=== PATIENT | female | born 1965 | race Caucasian/White ===

== ENCOUNTER 2018-08-03 14:20 | Inpatient (IN) | payer OTHER ==
[~2018-08-03] VITALS: Ht 172.7 cm; Wt 63.5 kg
[2018-08-03 20:00] VITALS: BP 119/81
[2018-08-03] MEDS ORDERED: MAGNESIUM HYDROXIDE 30 ML LIQUID UDC PO PRN (20:00)
[2018-08-03] MEDS ORDERED: ONDANSETRON 4 MG/2 ML VIAL IM PRN (20:00)
[2018-08-03] MEDS ORDERED: LOPERAMIDE HCL 2 MG CAPSULE PO PRN ×2 (20:00)
[2018-08-03] MEDS ORDERED: MAG HYDROX/AL HYDROX/SIMETH 30 ML LIQUID UDC PO PRN (20:00)
[2018-08-03] MEDS ORDERED: MIRALAX 17 GM POWD.PACK PO PRN (20:00)
[2018-08-03] MEDS ORDERED: CLONIDINE HCL 0.1 MG TABLET PO PRN (20:00)
[2018-08-03] MEDS ORDERED: LORAZEPAM 0.5 MG TABLET PO PRN ×2 (20:00)
[2018-08-03] MEDS ORDERED: IBUPROFEN 600 MG TABLET PO PRN (20:00)
[2018-08-03] MEDS ORDERED: SRC ALCOHOL WITHDRAWAL ADMITTING PROTOCOL XX PRN (20:00)
[2018-08-03] MEDS ORDERED: ACETAMINOPHEN 325 MG TABLET PO PRN (20:00)
[2018-08-03] MEDS ORDERED: ONDANSETRON ODT 4 MG TAB.RAPDIS SL PRN (20:00)
[2018-08-03] MEDS ORDERED: LORAZEPAM 2 MG/1 ML VIAL IM PRN (20:00)
[2018-08-03] MEDS ORDERED: THIAMINE HCL 200 MG/2 ML VIAL IM ONE (20:00)
[2018-08-03 20:18] LABS: *AMPHETAMINE, URINE POSITIVE (NEGATIVE); *BARBITURATE, URINE NEGATIVE (NEGATIVE); *CANNABINOID, URINE NEGATIVE (NEGATIVE); *COCCAINE, URINE NEGATIVE (NEGATIVE); *OPIATE, URINE NEGATIVE (NEGATIVE); *PHENCYCLIDINE SCREEN,URINE NEGATIVE (NEGATIVE)
[2018-08-03 20:23] LABS: *URINE HCG, QUAL NEGATIVE (NEGATIVE)
[2018-08-03 20:33] LABS: BASOPHILS % (AUTO) 0.4 % (0.0-2.0); EOSINOPHILS % (AUTO) 0.5 % (0.0-7.0); HEMATOCRIT 44.7 % (31.2-41.9); HEMOGLOBIN 15.5 g/dL (10.9-14.3); LYMPHOCYTES # (AUTO) 0.9 K/uL (20.0-40.0); LYMPHOCYTES % (AUTO) 16.8 % (20.5-51.5); MEAN CORPUSCULAR HGB CONC 35 g/dL (32.3-35.6); MONOCYTES # (AUTO) 0.4 K/uL (2.0-10.0); MONOCYTES % (AUTO) 6.5 % (0.0-11.0); NEUTROPHILS # (AUTO) 4.3 K/uL (1.8-8.9); NEUTROPHILS % (AUTO) 75.8 % (38.5-71.5); PLATELET COUNT (AUTO) 195 K/uL (179-408); RED BLOOD CELL COUNT(AUTO) 4.86 MIL/uL (3.63-4.92); WHITE BLOOD COUNT (AUTO) 5.6 K/uL (3.8-11.8)
[2018-08-03 20:38] LABS: ETHANOL < 3 MG/DL (0-0)
[2018-08-03 20:45] LABS: ALANINE AMINOTRANSFERASE 23 U/L (14-59); ALKALINE PHOSPHATASE 75 U/L (50-136); AMYLASE 31 U/L (25-115); ASPARTATE AMINOTRANSFERASE 16 U/L (15-37); BILIRUBIN,TOTAL 0.5 mg/dL (0.2-1.0); CARBON DIOXIDE 27 mmol/L (21-32); CHLORIDE 98 mmol/L (98-107); CREATININE 0.9 mg/dL (0.6-1.3); GLUCOSE 103 mg/dL (74-106); LIPASE 87 U/L (73-393); MAGNESIUM 1.7 mg/dL (1.8-2.4); POTASSIUM 3.2 mmol/L (3.5-5.1); TOTAL PROTEIN, SERUM 7.6 g/dL (6.4-8.2); UREA NITROGEN, BLOOD 18 mg/dL (7-18)
[2018-08-03] MEDS: HYDROXYZINE PAMOATE 25 MG CAPSULE PO PRN (23:54)
[2018-08-03] MEDS: diphenhydrAMINE 50 MG CAPSULE PO PRN (23:54)
[2018-08-04] VITALS: BP 107/66
[2018-08-04] MEDS: diphenhydrAMINE 50 MG CAPSULE PO PRN ×2 (00:04→21:04)
[2018-08-04] MEDS ORDERED: [UNRECOGNIZED DRUG - CODE] MC (02:56)
[2018-08-04] MEDS ORDERED: GABA-534 PO (02:56)
[2018-08-04] MEDS ORDERED: ESTR0.5T PO (02:56)
[2018-08-04] MEDS ORDERED: LORA-259 PO (02:56)
[2018-08-04] MEDS ORDERED: ZOLP12.52 PO (02:56)
[2018-08-04 04:00] VITALS: BP 91/59
[2018-08-04 08:00] VITALS: BP 110/74
[2018-08-04] MEDS: FOLIC ACID 1 MG TABLET PO SCH (08:52)
[2018-08-04] MEDS: MULTIVITAMINS,THERAPEUTIC TABLET PO SCH (08:52)
[2018-08-04] MEDS: THIAMINE HCL 100 MG TABLET PO SCH (08:52)
[2018-08-04] MEDS ORDERED: POTASSIUM CHLORIDE 20 MEQ TAB.PRT.SR PO ONE (09:00)
[2018-08-04] MEDS ORDERED: TUBERCULIN,PURIF.PROT.DERIV. 5 TU/0.1 ML TEST ID ONE (09:00)
[2018-08-04] MEDS ORDERED: MAGNESIUM OXIDE 400 MG TABLET PO ONE (09:00)
[2018-08-04] MEDS ORDERED: LORAZEPAM 0.5 MG TABLET PO PRN (10:30)
[2018-08-04 12:00] VITALS: BP 91/59
[2018-08-04 16:00] VITALS: BP 92/57
[2018-08-04] MEDS: LORAZEPAM 0.5 MG TABLET PO PRN (17:11)
[2018-08-04 20:00] VITALS: BP 100/57
[2018-08-04] MEDS: HYDROXYZINE PAMOATE 25 MG CAPSULE PO PRN (21:04)
[2018-08-05 08:00] VITALS: BP 104/60
[2018-08-05] MEDS: MULTIVITAMINS,THERAPEUTIC TABLET PO SCH (08:39)
[2018-08-05] MEDS: THIAMINE HCL 100 MG TABLET PO SCH (08:39)
[2018-08-05] MEDS: FOLIC ACID 1 MG TABLET PO SCH (08:39)
[2018-08-05] MEDS: LORAZEPAM 0.5 MG TABLET PO PRN (08:48)
[2018-08-05 08:49] LABS: CREATININE 0.7 mg/dL (0.6-1.3); POTASSIUM 3.7 mmol/L (3.5-5.1)
[2018-08-05] MEDS ORDERED: LORAZEPAM 2 MG/1 ML VIAL IM PRN (10:45)
[2018-08-05] MEDS ORDERED: LORAZEPAM 0.5 MG TABLET PO PRN ×2 (10:45)
[2018-08-05 12:00] VITALS: BP 101/58
[2018-08-05] MEDS: HYDROXYZINE PAMOATE 25 MG CAPSULE PO PRN ×2 (15:27→21:20)
[2018-08-05 16:00] VITALS: BP 103/71
[2018-08-05 20:00] VITALS: BP 101/62
[2018-08-05] MEDS: diphenhydrAMINE 50 MG CAPSULE PO PRN (20:23)
[2018-08-05] MEDS ORDERED: CIPROFLOXACIN HCL 250 MG TABLET PO SCH (21:00)
[2018-08-06 08:00] VITALS: BP 99/58
[2018-08-06] MEDS: MULTIVITAMINS,THERAPEUTIC TABLET PO SCH (08:26)
[2018-08-06] MEDS: THIAMINE HCL 100 MG TABLET PO SCH (08:26)
[2018-08-06] MEDS: FOLIC ACID 1 MG TABLET PO SCH (08:26)
[2018-08-17 09:13] LABS: HEPATITIS B SURFACE AG Negative (Negative)
== END 2018-08-06 09:45 | disposition other institution (70) | DRG 895 ==
LOC: SRC 18:24
PROVIDERS: ADMIT Family Medicine Addiction Medicine; ATTEND Family Medicine Addiction Medicine
PROC: HZ2ZZZZ Detoxification Services for Substance Abuse Treatment (ICD-10-PCS; principal; 2018-08-03)
PROC: HZ41ZZZ Group Counseling for Substance Abuse Treatment, Behavioral (ICD-10-PCS; 2018-08-05)
DX: F10.230 Alcohol dependence with withdrawal, uncomplicated (principal); F15.23 Other stimulant dependence with withdrawal; Y90.0 Blood alcohol level of less than 20 mg/100 ml; G47.00 Insomnia, unspecified; N95.1 Menopausal and female climacteric states; F12.10 Cannabis abuse, uncomplicated; F41.9 Anxiety disorder, unspecified
CPT/HCPCS: 36415; 70030-TC; 80307; 80324; 83690; 83735; 84443; 84703; 85025; 86592; 86705; 86803; 87340; 87806; G0480; Q0163